=== PATIENT | male | born 1955 | race Caucasian/White ===

== ENCOUNTER 2016-07-28 06:12 | Day surgery (SDC) | payer BC, MEDICARE ==
[~2016-07-28 06:12] MED LIST: RINGERS SOLUTION,LACTATED 1,000 ML IV PRN; ceFAZolin SODIUM 1 GM VIAL IV PRN
[2016-07-28] MEDS ORDERED: NORMAL SALINE 1,000 ML IV ONE (07:40)
[2016-07-28] MEDS ORDERED: BUPIVACAINE HCL 50 ML VIAL IJ ONE ×2 (08:05)
[2016-07-28 10:12] VITALS: BP 153/72
== END 2016-07-28 06:13 | disposition home or self-care (01) ==
LOC: AMB 06:12 → EDSTATUS 12:00
PROVIDERS: ATTEND Orthopaedic Surgery
PROC: 0HQLXZZ Repair Left Lower Leg Skin, External Approach (ICD-10-PCS; principal; 2016-07-28 08:00)
DX: T87.81 Dehiscence of amputation stump (principal); I12.0 Hypertensive chronic kidney disease with stage 5 chronic kidney disease or end stage renal disease; N18.6 End stage renal disease; Z94.0 Kidney transplant status; E10.65 Type 1 diabetes mellitus with hyperglycemia; E10.22 Type 1 diabetes mellitus with diabetic chronic kidney disease; N18.9 Chronic kidney disease, unspecified; E78.5 Hyperlipidemia, unspecified; I73.9 Peripheral vascular disease, unspecified; Z87.891 Personal history of nicotine dependence; Z68.27 Body mass index [BMI] 27.0-27.9, adult

== ENCOUNTER 2016-08-25 06:28 | Day surgery (SDC) | payer BC, MEDICARE ==
[~2016-08-25 06:28] MED LIST changes: +ACETAMINOPHEN 500 MG TABLET PO PRN; +HYDROmorphone HCL 2 MG/ML VIAL IV PRN; +MAG HYDROX/ALUMINUM HYD/SIMETH 30 ML UDC PO PRN; +MAGNESIUM HYDROXIDE 30 ML UDC PO PRN; +ONDANSETRON HCL/PF 2 MG/ML VIAL IV PRN; +PROMETHAZINE HCL 25 MG in DEXTROSE 5 % IN WATER 50 ML IV PRN; +ZOLPIDEM TARTRATE 5 MG TABLET PO PRN; -ceFAZolin SODIUM 1 GM VIAL IV PRN; +diphenhydrAMINE HCL 50 MG/ML VIAL IV PRN; +oxyCODONE HCL/ACETAMINOPHEN 1 TAB TABLET PO PRN
--- OUTSIDE RECORDS SUMMARY | 2016-08-25 06:33 | XMS REPORT | Continuity of Care Document ---
:1955 Author Organization [facility] ([facility]) Address [address] [place] [address] Phone [phone] Care Team Providers Name Role Phone Jerome Zhenlizzette Primary Care Provider [phone] Source Comments This disclosure is being made pursuant to the Care Everywhere program, applicable federal and state laws, and may not contain all informaitonavailable regarding this patient.[facility] ([facility]) Active Allergies and Adverse Reactions Allergen Noted Date Severity Reactions Comments No Known Allergies 11/03/2008 Current Medications Prescription Sig. Disp. Refills Start End Date Status Date multivitamin per take 1 Tab by Active tablet mouth daily. FERROUS FUMARATE Take 65 mg by Active (IRON PO) mouth daily. FEROSOL gemfibrozil 600 mg Take 1 Tab by 180 Tab 4 Active tablet mouth 2 times 4 daily. Indications: HIGH DENSITY LIPOID DEFICIENCY metoPROLol Take 1 Tab by 180 Tab 3 Active tartrate 100 mg mouth 2 times 4 tablet daily. Indications: HYPERTENSION tacrolimus 1 mg Take 1 Cap by 180 Cap 3 Active capsule mouth every 12 5 hours. ICD9=V42.0 Indications: ORGAN TRANSPLANT REJECTION omega-3 fatty Take 2 g by mouth Active acids 1 gram 2 times daily capsule PANTOPRAZOLE 40 mg Active EC tablet 5 atorvastatin 20 mg Take 1 tablet (20 90 tablet 4 Active tablet mg total) by 5 mouth daily tamsulosin 0.4 mg Take 1 capsule 90 capsule 4 Active capsule (0.4 mg total) by 6 mouth at bedtime. predniSONE 5 mg Take 1 tablet (5 90 tablet 3 Active tablet mg total) by 6 mouth daily. SUPPLY blood sugar 90 days plus 3 540 Strip 3 Active test strips refills 6 SUPPLY insulin 1 Each 6 times 360 Syringe 3 Active syringe w/ needle daily. 6 U-100 0.5 mL 31 g x 5/16" furosemide 20 mg Take 3 tablets 180 tablet 1 Active tablet (60 mg total) by 6 mouth 2 times daily. calcitriol 0.25 Take 1 capsule 90 capsule 3 Active mcg capsule (0.25 mcg total) 6 by mouth daily. amLODIPine 10 mg Take 1 tablet (10 90 tablet 4 Active tablet mg total) by 6 mouth daily. cloNIDine HCl 0.1 Take 2 tablets 540 tablet 5 Active mg tablet (0.2 mg total) by 6 mouth 3 times daily. SUPPLY ONE TOUCH 6 times daily. 600 Strip 3 Active ULTRA test strips 6 mycophenolate Take 3 capsules 540 capsule 3 Active mofetil 250 mg (750 mg total) by 6 capsule mouth 2 times daily. SUPPLY BD Use 5 times daily 500 Each 3 Active ULTRA-FINE EMILY 32 7 x 4 MM pen needle insulin aspart Use based on 45 mL 3 Active (NovoLOG FLEXPEN) carbohydrate 7 100 unit/mL (3 mL) intake and per injection pen sliding scale. Daily dose around 50 units. Please dispense for 90 days. insulin glargine 20 Units before 45 mL 3 Active (BASAGLAR KWIKPEN) breakfast, 5 7 100 unit/mL (3 mL) Units at bedtime. injection pen Please dispense for 90 days plus refills. insulin aspart Use based on 45 mL 3 08/16/19 Discontinued (NovoLOG FLEXPEN) carbohydrate 6 17 100 unit/mL (3 mL) intake and per injection pen sliding scale. Daily dose around 50 units.. SUPPLY BD Use 5 times 500 Each 07/31/19 Discontinued ULTRA-FINE EMILY 32 daily. 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 03/14/2016 Hypertension 03/14/2016 Iron deficiency anemia due to chronic blood loss 12/03/2014 REGLA (acute kidney injury) 12/03/2014 DKA (diabetic ketoacidoses) 12/03/2014 Urinary retention 06/10/2013 Aftercare following organ transplant 10/11/2009 Pain in joint, ankle and foot 08/12/2007 Other and unspecified hyperlipidemia 08/08/2007 Type I (juvenile type) diabetes mellitus without mention of complication, uncontrolled Osteoporosis, unspecified 05/01/2007 Follow-up examination, following unspecified surgery 07/04/2006 Cellulitis and abscess of leg, except foot 06/19/2006 Lower limb amputation, below knee 02/28/2005 Anemia, unspecified 01/12/2005 Unspecified osteomyelitis, ankle and foot 12/27/2004 Kidney replaced by transplant 12/26/2004 Encounter for long-term (current) use of steroids 12/26/2004 Encounter for long-term (current) use of medications 12/26/2004 Overview: icd10 Peripheral vascular disease, unspecified 06/28/2004 Pressure ulcer, unspecified site(707.00) 06/28/2004 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) 04/05/2004 Resolved Problems Problem Noted Date Resolved Date Melena 12/03/2014 03/14/2016 Acute blood loss anemia 12/03/2014 03/14/2016 Most Recent Encounters Date Type Specialty Providers Description 08/16/2016 Orders/Notes Med Endocrinology Mina Larry Dx: Uncontrolled type MD Kory 1 diabetes mellitus with other circulatory complication (Primary Dx) 08/01/2016 Office Visit Transplant RACHEL Default, Other Subj: Upcoming Appt Billg - Defo Reminder Nephrology, Transplant Sv 08/01/2016 Telephone Transplant Josue Hager, Chief Comp: RN Coordination Of Care 07/31/2016 Orders/Notes Transplant Allyssa Dominique Dx: Transplanted Kory RN kidney (Primary Dx) 07/31/2016 Telephone Transplant Allyssa Dominique Chief Comp: Kory RN Coordination Of Care 07/26/2016 Orders/Notes Med Endocrinology Mina Larry Dx: Uncontrolled type Kory, 1 diabetes mellitus with other specified complication (Primary Dx) 07/25/2016 Telephone Transplant Allyssa Dominique Chief Comp: WOODROW Horn Coordination Of Care 07/21/2016 Telephone Transplant JOYA/Patience Liu, Chief Comp: Kidney gold leaf printer Pre-evaluation 07/17/2016 Telephone Transplant JOYA/Patience Liu, Chief Comp: Follow-up RN 07/14/2016 Telephone Transplant JOYA/Ava Moreau RN 06/27/2016 Refill Transplant Allyssa Dominique Dx: Kidney Kory, RN transplanted (Primary Dx) 06/08/2016 Telephone Med Endocrinology Mina Larry Chief Comp: Discuss MD Kory Recommendations 06/06/2016 Telephone Transplant JOYA/Marilyn Cohen, Chief Comp: Kidney gold leaf printer Pre-evaluation 06/04/2016 Telephone Patient Services Beckie Kong, Chief Comp: Advice RN Only 05/29/2016 Committee Review Transplant JOYA/Delia Grissom RN Immunizations Name Dates Previously Given Next Due Influenza 04/06/2011,04/29/2008,05/07/2007,05/09 Influenza, PF 05/01/2013,04/05/2012,04/05/2009 Influenza, unspecified 04/06/2011,06/28/2006 Novel Influenza H1N1 06/22/2009 Pneumococcal Polysaccharide, PPSV23 04/07/2010 (Pneumovax 23) Td, adsorbed adult PF 04/10/2016 Td, adult unspecified 10/17/2002 Social History Tobacco Use Types Packs/Day Years Used Date Former Smoker Cigars 0 5 Quit: 03/02/1985 Smokeless Tobacco: Never Used Tobacco Cessation:Counseling Given: Yes Comments: Alcohol Use Drinks/Week oz/Week Comments No Last Filed Vital Signs Vital Sign Reading Time Taken Blood Pressure 166/85 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 Pulse 78 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 Temperature 36.8 C (98.2 F) 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 Respiratory Rate 20 05/11/2016 1:32 PM CDT Height 1.727 m (5' 7.99") 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 Weight 88.45 kg (195 lb) 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 Body Mass Index 29.66 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 Oxygen Saturation 99% 05/11/2016 1:32 PM CDT Plan of Care Date Type Specialty Providers Description 09/07/2016 Appointment Endocrinology Mina Larry, Chief Comp: Patient MD Reported Reason For [address] [place] [address] [phone] (Fax) 10/17/2016 Appointment Radiology Chief Comp: Patient Reported Reason For Visit 10/17/2016 Appointment Transplant JOYA/LO/BOO Default, Other Billg - Defo [address] [place] [address] [phone] (Fax) Chief Comp: Patient Nephrology, Transplant Sv Reported Reason For Visit Health Maintenance Due Date Last Done Comments Hepatitis B Vaccine (1 of 3 - 1955 Primary Series) Tdap Vaccine 1966 DIABETIC: Microalbumin 1973 Colonoscopy 07/07/2005 DIABETIC: Foot Exam 12/20/2010 DIABETIC: Retinal Eye Exam 12/20/2010 Pneumococcal Vaccine (2 of 3 04/07/2011 04/07/2010 - PCV13) Prostate Cancer Screening 03/08/2012 03/08/2011, 08/13/2000 Zoster Vaccine 2015 Influenza Vaccine: Seasonal 02/07/2016 05/01/2013, Additional history exists (#1) 04/05/2012, 04/06/2011 DIABETIC: Hemoglobin A1C 11/21/2016 05/24/2016, Additional history exists 02/29/2016, 12/03/2014 DIABETIC: Cholesterol 05/24/2017 05/24/2016, Additional history exists 03/08/2011, 09/07/2006 Diabetic: Hdl 05/24/2017 05/24/2016, Additional history exists 03/08/2011, 09/07/2006 Diabetic: Ldl 05/24/2017 05/24/2016, Additional history exists 03/08/2011, 09/07/2006 DIABETIC: Triglycerides 05/24/2017 05/24/2016, Additional history exists 03/08/2011, 09/07/2006 Td Vaccine 04/10/2026 04/10/2016, 10/17/2002 HCV Screening Completed 05/24/2016, 06/28/2006, 08/13/2000 Results from Last 3 Months EXTERNAL TACROLIMUS DRUG LEVEL (08/14/2016) Component Value Range Ext Tacrolimus 8.3 5-15 NG/ML EXTERNAL CREATININE - RANDOM URINE (08/09/2016) Component Value Range Ext Creatinine, Urine, Random none MG/DL EXTERNAL PROTEIN - RANDOM URINE (08/09/2016) Component Value Range Ext Protein, Urine, Random none MG/DL EXTERNAL CO2 (08/09/2016) Component Value Range Ext CO2 22(A) 24-32 MEQ/L EXTERNAL PLATELET COUNT (08/09/2016) Component Value Range Ext Platelet Count 232 EXTERNAL WBC (08/09/2016) Component Value Range Ext WBC 7.0 K/MM3 EXTERNAL HEMOGLOBIN (08/09/2016) Component Value Range Ext Hemoglobin 9.1 G/DL EXTERNAL POTASSIUM (08/09/2016) Component Value Range Ext Potassium 4.6 3.5-5.0 MEQ/L EXTERNAL CREATININE (08/09/2016) Component Value Range Ext Creatinine 3.18(A) 0.7-1.4 MG/DL EXTERNAL BLOOD UREA NITROGEN (BUN) (08/09/2016) Component Value Range Ext BUN 35(A) 10-20 MG/DL
--- OUTSIDE RECORDS SUMMARY | 2016-08-25 06:33 | XMS REPORT | CCD ---
:1955 Author Name STEPHANY COE Address [address] [facility] Unavailable [place], [place] [id number] Care Team Providers Name Role Phone FLORENCIO PAREDES Attending Physician Unavailable Vital Signs Unknown or Not Available. Allergies Unknown or Not Available. Procedures Unknown or Not Available. History of Immunizations Unknown or Not Available. Problems Unknown or Not Available. Results COMPREHENSIVE METABOLIC PANEL - Collect Date/Time: 07/04/2016 16:57 Test Name Code Test Result Test Units Test Ref Range GLUCOSE 151 mg/dL L=74 H=106 SODIUM 140 mmol/L L=136 H=145 POTASSIUM 4.4 mmol/L L=3.5 H=5.1 CHLORIDE 105 mmol/L L=98 H=107 CO2 18 mmol/L L=21 H=32 BUN 90.0 mg/dL L=7.0 H=18.0 CREATININE 5.1 mg/dL L=0.8 H=1.3 BUN/CREAT 17.6 L=7.6 H=21.2 CALCIUM 7.6 mg/dL L=8.6 H=10.1 TOTAL BILI 0.3 mg/dL L=0.2 H=1.0 TOTAL PROTEIN 5.3 g/dL L=6.4 H=8.2 ALBUMIN 2.4 g/dL L=3.4 H=5.0 A/G RATIO 0.8 ALKALINE PHOS 167 IU/L L=50 H=136 AST/SGOT 37 IU/L L=15 H=37 ALT/SGPT 34 IU/L L=12 H=78 ANION GAP 21.4 mmol/L L=7.0 H=16.0 AGE 60 YEARS GFR 12.36 ml/min pro-BRAIN NATRIURETIC PEPTIDE - Collect Date/Time: 07/04/2016 16:57 Test Name Code Test Result Test Units Test Ref Range BNP 23536.0 pg/ml L=0.0 H=125 HEMOGRAM - Collect Date/Time: 07/04/2016 16:57 Test Name Code Test Result Test Units Test Ref Range WBC 6690-2 4.9 K/uL L=3.2 H=10.0 RBC 789-8 2.85 M/uL L=4.30 H=5.70 HEMOGLOBIN 718-7 7.8 g/dL L=13.6 H=17.1 HEMATOCRIT 23.8 % L=40.0 H=52.0 MCV 83.5 fL L=81.0 H=101 MCH 27.4 PG L=26.0 H=38.0 MCHC 32.8 G/DL L=31.0 H=37.0 PLATELETS 777-3 201 K/UL L=140 H=380 RDW-SD 49.3 FL L=37.0 H=54.0 RDW-CV 16.3 % L=11.0 H=16.0 MPV 11.3 FL L=9.0 H=13.0 SLIDE REVIEWED? SEE COMMENTS N/A Active Medications Unknown or Not Available. Medications Administered During Visit Unknown or Not Available. Encounters Encounter Diagnosis Diagnosis Code Start Date Edema [id number] 07/04/2016 Social History Smoking Status Code Start Date End Date Never smoker [id number] Patient Decision Aids Unknown or Not Available. Discharge Instructions You were admitted to [facility] on 07/04/2016 16:36 with a principal diagnosis of Edema, unspecified You had the following tests done:COMPREHENSIVE METABOLIC PANELHEMOGRAMpro-BRAIN NATRIURETIC PEPTIDE You were discharged from [facility] on 07/04/2016 16:36 Should you have any questions prior to discharge, please contact a member of your healthcare team. If you have left the hospital and have any questions, please contact your primary care physician. Chief Complaint and Reason For Visit Unknown or Not Available. Function Status Unknown or Not Available. Plan of Care Unknown or Not Available. Referral/Transition of Care Unknown or Not Available.
[2016-08-25] MEDS: RINGERS SOLUTION,LACTATED 1,000 ML IV ONE (07:15)
[2016-08-25] MEDS: ceFAZolin SODIUM 1 GM VIAL IV PRN (08:00)
[2016-08-25 11:27] VITALS: BP 105/52
[2016-08-25] MEDS ORDERED: SENNOSIDES/DOCUSATE SODIUM 1 TAB TABLET PO SCH (21:00)
== END 2016-08-25 06:29 | disposition home or self-care (01) ==
LOC: AMB 06:28 → EDSTATUS 14:45
PROVIDERS: ATTEND Orthopaedic Surgery
PROC: 0JQP3ZZ Repair Left Lower Leg Subcutaneous Tissue and Fascia, Percutaneous Approach (ICD-10-PCS; 2016-08-25)
PROC: 0KBT0ZZ Excision of Left Lower Leg Muscle, Open Approach (ICD-10-PCS; principal; 2016-08-25 08:00)
DX: E10.69 Type 1 diabetes mellitus with other specified complication (principal); T87.81 Dehiscence of amputation stump; E10.22 Type 1 diabetes mellitus with diabetic chronic kidney disease; N19 Unspecified kidney failure; I12.9 Hypertensive chronic kidney disease with stage 1 through stage 4 chronic kidney disease, or unspecified chronic kidney disease; N25.81 Secondary hyperparathyroidism of renal origin; I73.9 Peripheral vascular disease, unspecified; Z94.0 Kidney transplant status; Z87.891 Personal history of nicotine dependence; Z68.27 Body mass index [BMI] 27.0-27.9, adult